=== PATIENT | female | born 1965 | race Caucasian/White ===

== ENCOUNTER → 2016-09-20 | Outpatient (CLI) | payer BC ==
[~2016-09-20] MED LIST: AMARYL2 MG PO; BP MED; FLEXERIL10 MG PO; LISINOPRIL5 MG PO; METFORMIN1000 MG PO; Motrin,Rufen800 MG PO; NAPROSYN500 MG PO; NORGESTIMATE-E1 EACH PO; PRECOSE100 MG PO; PROTONIX40 M1 PO; SUGAR PILL; TRAMADOL HYDROC50 MG PO; ZOCOR10 MG PO
[2016-09-20 11:29] LABS: HEMOGLOBIN A1c 7.1 % (4.8-5.6)
[2016-09-20 11:32] LABS: BUN 15 mg/dl (7-24); CARBON DIOXIDE 28 mmol/L (21-32); CHLORIDE 108 mmol/L (98-107); CHOLESTEROL 131 mg/dL (<200); CPK 176 U/L (26-192); EST GLOM FILT AFRICAN AMERICAN > 60 ml/min; GLUCOSE 90 mg/dL (65-99); HDL CHOLESTEROL 45 mg/dl (40-60); LDL CHOLESTEROL 55 mg/dL (9-159); POTASSIUM 3.8 mmol/L (3.5-5.1); SODIUM 142 mmol/L (136-145); TRIGLYCERIDES 155 mg/dl (<150); VLDL CHOLESTEROL 31 mg/dL (6-40)
== END | disposition home or self-care (01) ==
LOC: LAB 10:47
PROVIDERS: Family Medicine
DX: E11.9 Type 2 diabetes mellitus without complications (principal); E78.00 Pure hypercholesterolemia, unspecified

== ENCOUNTER → 2017-02-06 | Outpatient (CLI) | payer BC | END | disposition home or self-care (01) | LOC: MAMMO 01-30 07:40 | DX: Z12.31 Encounter for screening mammogram for malignant neoplasm of breast (principal) ==

== ENCOUNTER → 2018-11-08 | Outpatient (CLI) | payer BC | END | disposition home or self-care (01) | LOC: US 10:52 | DX: E04.1 Nontoxic single thyroid nodule (principal); R13.13 Dysphagia, pharyngeal phase ==

== ENCOUNTER → 2019-01-16 | Day surgery (SDC) | payer BC | END | disposition home or self-care (01) | LOC: SDC 02:24 | PROVIDERS: Registered Nurse Flight | DX: E04.1 Nontoxic single thyroid nodule (principal); I88.8 Other nonspecific lymphadenitis; I10 Essential (primary) hypertension; E11.9 Type 2 diabetes mellitus without complications; E78.00 Pure hypercholesterolemia, unspecified; Z79.899 Other long term (current) drug therapy ==

== ENCOUNTER → 2020-04-21 | Outpatient (CLI) | payer BC | END | disposition home or self-care (01) | LOC: MAMMO 04-11 08:00 | PROVIDERS: ATTEND Family Medicine | DX: Z12.31 Encounter for screening mammogram for malignant neoplasm of breast (principal); N64.89 Other specified disorders of breast ==